=== PATIENT | male | born 1990 | race Caucasian/White ===

== ENCOUNTER 2024-09-28 22:49 | Emergency (ER) | payer OTHER, SELFPAY ==
[2024-09-28 22:50] VITALS: BP 161/91; PULSE 80; RESP 15; TEMP 36.6; O2SAT 98; BMI 44.8
--- NOTE | 2024-09-28 23:21 | EDS_ITS ---
HPI History of Present Illness Chief Complaint: Eye Problem Informant: patient Narrative Narrative: 34-year-old male presenting to the emergency room with foreign body of the left eye. Patient states he noticed that around 1500 hrs. today. States his was able to visualize something in the left cornea about the 1500 position. He wears corrective lenses does not wear contacts. He believes it to be a piece of metal. He was unable to remove it with a Q-tip. PFSH PFSH Allergy/AdvReac Type Severity Reaction Status Date / Time No Known Allergies Allergy Verified 09/28/24 22:50 ROS ROS ED Constitutional Constitutional ED: Denies chills or weight loss Eyes Eyes: Reports other Details: See history of present illness ; Denies change in vision or diplopia ENT ENT ED: Denies ear pain, rhinorrhea or sore throat Cardiovascular Cardiovascular: Denies chest pain, orthopnea, palpitations or racing heartbeat Respiratory/Chest Respiratory/Chest: Denies cough, dyspnea or orthopnea Gastrointestinal Gastrointestinal: Denies abdominal pain, diarrhea, nausea or vomiting Genitourinary Genitourinary ED: Denies dysuria, hematuria or urinary frequency Musculoskeletal Musculoskeletal: Denies arthralgias or myalgias Integumentary Denies abscess or rash Neurologic Neurologic: Denies headache(s) or weakness Psychiatric Psychiatric: Denies anxiety, depression, suicidal ideation or suicidal thoughts Endocrine Endocrinology: Denies polydipsia, polyphagia or polyuria Allergic/Immunologic Allergic/Immunologic ED: Denies mouth swelling, tongue swelling or urticaria EXAM Physical Exam Const Vital Signs: 09/28/24 22:50 Temperature 97.8 F Temperature Source Temporal Pulse Rate 80 Respiratory Rate 15 Blood Pressure 161/91 H Blood Pressure Mean 114 Pulse Ox 98 Oxygen Delivery Method Room Air Positive well nourished and well developed General Appearance ED: well developed HEENT Reports normocephalic, head/scalp atraumatic and moist mucous membranes Eyes PERRL and EOMs intact bilaterally Eyes Narrative: There is an obvious metallic corneal foreign body at about the 1500 position of the left cornea. No conjunctival injection. No light sensitivity. Neck no lymphadenopathy, supple and no JVD Resp normal respiratory effort and clear to auscultation bilaterally Cardio regular rate, regular rhythm and no murmurs GI normal to inspection, nondistended, normoactive bowel sounds and non-tender Palpation: soft Back/Spine no CVA tenderness and normal ROM Extremity normal to inspection General Extremety ED: Negative for edema General Extremity: Negative for edema Neuro oriented x3 and CN's II-XII intact bilaterally Sensorium / Orientation: alert Motor Exam: strength 5/5 throughout Psych mental status grossly normal Mood & Affect: Negative for depressed or tearful Skin no rashes or lesions noted and no wounds MDM MDM MDM Narrative Medical decision making narrative: Differential diagnosis includes but not limited to corneal foreign body corneal abrasion rust ring ruptured globe conjunctivitis Tetracaine was used anesthetize the eye. Was unable to remove it with a Q-tip. A 23-gauge needle was used to remove the metallic foreign body which was visualized after removal. Slit-lamp examination shows a small residual rust ring. Slight fluorescein dye uptake in the area negative Sidel sign. Patient will use erythromycin ophthalmic ointment. I am again asked that he follow-up with ophthalmology either tomorrow or Tuesday morning to see if we can get definitive removal of the rust ring. He is comfortable with this plan History & Record Review Discussion w/independent historian: Patient Discharge Plan Triage Chief Complaint: Eye Problem ED Provider: Khanh Cesar Dx/Rx/DC Orders Clinical Impression: Corneal foreign body, Corneal rust ring of left eye Instructions: ED Corneal Foreign Body, Removed, ED RUST RING Primary Care Provider: Care Physician,No Primary Referrals: Kevin Brown MD [Med Staff - Active Staff] - As soon as possible Care Physician,No Primary [Primary Care Provider] - Activity Restrictions/Additional Instructions: Apply ointment 4-5 times per day until discontinued by ophthalmology Print Language: Croatian Disposition Disposition: Home, Self Care
[2024-09-28] MEDS: Erythromycin Base 1 OPTH.TUBE 1 APPLIC LEFT EYE (23:27)
[2024-09-28] MEDS: Tetracaine 0.5% Ophthalmic Bottle 1 DRP EACH EYE (23:28)
[2024-09-28] MEDS: Fluorescein 1 MG STRIP 1 STRIP EACH EYE (23:28)
[2024-09-28 23:30] VITALS: BP 142/74; PULSE 80; RESP 15; TEMP 36.6; O2SAT 98
== END 2024-09-28 23:32 | disposition home or self-care (01) ==
LOC: ED 23:26
PROVIDERS: Emergency Provider Emergency Medicine; Visit Provider Emergency Medicine
DX: T15.01XA Foreign body in cornea, right eye, initial encounter (principal); H18.59 Other hereditary corneal dystrophies; W44.8XXA Other foreign body entering into or through a natural orifice, initial encounter
CPT/HCPCS: 65222; 99282

== ENCOUNTER 2025-08-30 07:00 | Outpatient (RCR) | payer OTHER, SELFPAY ==
--- NOTE | 2025-07-29 08:19 | HP.PTEVAL_ITS ---
Patient's Visit Information Visit Information Visit Information: CHOCO BROWN is a 34 year old M referred to Physical Therapy by Dr. Martine Richey MD with a diagnosis of Acute R knee pain. Date of Evaluation: 07/29/25 Physical Therapist: Mj Barrow, DPT, OCS, CSCS Visit Plan Frequency: 2-3x /Week Duration: 4-6 Weeks Plan: 2-3x/week for 3-6 weeks... IE HEP quad, HS adn itb stretches 30" 4x R LE and avoid aggravating activities(medial kneee teensile stress)...HO given. Treat with US medial R knee non thermal to R MCL, rollout and stretch quad and HS R, strength R hip and knee and return to function as tolerated. Subjective Subjective: Dr. Richey saw him due to couldn't bear weight R leg Knee. X rays : normal. No MRI yet. Drained some fluid off knee and cortisone injection helped significantly 3 weeks. Started hurting right before that insidiously, may bee after kneeling on rock. Pain was anterior and it swelled and then got painful, maybe du to twisting and turning on skid steer, uneven terrain was worse. 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 Curently working and trying to take it slow and easy. Pain is anterior medially. Intermittent and worse with steps and normal work. Comfortable at rest except for slight pressure. Sleep is OK. Taking it easy at work. Hobbies: no time. Fishing with kids. 50% back to normal No real ex outside of work. Pain R knee: Pain Intensity (Out of 10): 1 Pain Intensity Range: 0 and 4 Comment: kaleigh Objective Objective: L foot drop in gait from preevious injury decadee ago. Otherwise no abnormalities today. steps are reciprocal but painful R lazaro medially up and down, no rail needed. trasnfers bed and chair are I. R knee aROM 0-124 no pain, L knee 0-123. - bounce home, - pivot shift, slight + R balgus stress, - varus. slight + R scour. - patellar grind. streength B hip abd and ext 3+, flexion 4-, instability core with sitting flexion test knee strength 4 R knee xt adn 4 L, HS 4- R and 4 L. No real pain xcept R medial with contractions at knee. ankle strength 4- L and 4+ R. DF. Balance/Special Test Scores Lower Extremity Functional Score: 58 Goals Goal 1:: Knee pain 1/10 at worst adn 90% improved Goal Time Frame: 4-6 Weeks Goal 2:: Climb steps without pain Goal Time Frame: 4-6 Weeks Goal 3:: I appropriate HEP to limit future problems Goal Time Frame: 4-6 Weeks Goal 4:: Work without increased pain or limitations Goal Time Frame: 4-6 Weeks Goal 5:: 65 LEFS Goal Time Frame: 4-6 Weeks Rehabilitation Potential Physical Therapy Diagnosis: R knee pain likely medial OA vs MCL strain. Effecting QOL and work Rehabilitation Potential: Good Anticipated Interventions Patient/Client Instruction: Educate patient on: Condition and Plan of Care For the Purpose of:: To decrease pain, To improve nutrient delivery to tissue, To improve muscle performance and motor function, To increase tolerance to activity/condition/position and To improve ability of physical actions for home/community/work/leisure Therapeutic Exercise to Include: Strength training, Postural training, Flexibilty training, Gait and locomotor training, Passive ROM and Active ROM For the Purpose of:: To decrease pain, To improve nutrient delivery to tissue, To improve muscle performance and motor function, To increase tolerance to activity/condition/position, To improve ability of physical actions for home/community/work/leisure and To improve gait and locomotor functions Manual Therapy Techniques to Include: Passive ROM and Soft tissue mobilization For the Purpose of:: To decrease pain, To decrease swelling/inflammation, To improve nutrient delivery to tissue and To improve muscle performance and motor function Ultrasound (thermal/non thermal): Yes (nonthrmal R mcL) For the Purpose of:: To decrease pain, To improve nutrient delivery to tissue and To improve muscle performance and motor function Text: Thank you for the opportunity to evaluate your patient. For Medicare and Medicare HMO plans, please review the plan of care and approve it. It will need to be FAXED BACK to us at [phone] for Medicare purposes. For Medicare only, by signing this I certify the plan of care. Please let me know if there are questions or concerns regarding this plan of car [facility] Physician Signature: Date:
--- NOTE | 2025-08-30 07:43 | HP.PTDCSUM ---
Discharge Summary D/C summary: It has been my pleasure to treat CHOCO BROWN referred by Dr. Martine Richey MD, with the diagnosis of Acute R knee pain for a total of 9 visit(s). Discharge Date: 08/30/25 Please see the following information for a summary of their discharge status. Subjective Subjective: Better since started. ROM and pain much better. Only gets tense now and then. Geets grinding with strenuous activity but just noisy. No f/u with [facility], no ortho. HEP no problem, 3x/week. Sleeeping is good. Work: Pain R knee: Pain Intensity (Out of 10): 0 Overall Improvement % Improvement: 95 Objective Objective/Function: 0-132 AROM without pain R knee. Walks normal, steps reciprocal without R knee pain or hesitation. Goals Goal 1:: Knee pain 1/10 at worst adn 90% improved Goal Progress: Goal Met Goal 2:: Climb steps without pain Goal Progress: Goal Met Goal 3:: I appropriate HEP to limit future problems Goal Progress: Goal Met Goal 4:: Work without increased pain or limitations Goal Progress: Progressing Goal 5:: 65 LEFS Goal Progress: Goal Met Plan Plan: d/c to HEP D/C Information d/c sentence: If there are questions or concerns regarding this patient's physical therapy, please feel free to call me at [phone]. Thank you for the referral of this patient. Sincerely, Mj Barrow, DPT, OCS, CSCS Balance/Gait/Functional tests Balance/Special Test Scores Lower Extremity Functional Score: 74 Improvement % Improvement: 95
== END 2025-08-30 19:00 | disposition home or self-care (01) ==
LOC: PT 07:00
PROVIDERS: PCP Pediatrics; Referring Provider Orthopaedic Surgery; Visit Provider Orthopaedic Surgery
DX: M25.561 Pain in right knee (principal)
CPT/HCPCS: 97035; 97110; 97161; 97530